=== PATIENT | female | born 2000 | race Caucasian/White ===

== ENCOUNTER 2025-03-04 15:28 | Emergency (ER) | payer BC ==
[2025-03-04] MEDS ORDERED: HYDROcodone/Acetaminophen 5/325 mg Tablet ONE (16:40)
[2025-03-04] MEDS ORDERED: Bacitracin 1 PK ONE (17:21)
== END 2025-03-04 17:43 | disposition home or self-care (01) ==
LOC: CSHERS 15:28
DX: S05.12XA Contusion of eyeball and orbital tissues, left eye, initial encounter (principal); S60.511A Abrasion of right hand, initial encounter; S60.512A Abrasion of left hand, initial encounter; V00.841A Fall from standing electric scooter, initial encounter
CPT/HCPCS: 70450; 70486; 72125